=== PATIENT | female | born 1995 ===

== ENCOUNTER 2018-06-28 18:22 | Emergency (ER) | payer MEDICAID ==
[2018-06-28 18:58] VITALS: BMI 30.1
[2018-06-28 19:24] LABS: SQUAMOUS EPITHIAL < 1 /hpf (0-5); URINE BILIRUBIN NEGATIVE (NEGATIVE); URINE CLARITY Clear (Clear); URINE COLOR Straw (YELLOW); URINE GLUCOSE (UA) NORMAL (Normal); URINE LEUKOCYTE ESTERASE NEG Leu/uL (Negative); URINE PROTEIN NEGATIVE (NEGATIVE); URINE UROBILINOGEN NORMAL mg/dL (0.2-1.0)
[2018-06-28 19:32] LABS: URINE BLOOD TRACE (NEGATIVE)
--- NOTE | 2018-06-28 19:49 | OBHP ---
Datetime: 06/28/2018 19:44 IP Adm Impression: , intrauterine IP Admit Plan: Discharge home Admit Comment, IP Provider: @ 35.6 wks GA c/o pressure x 1 day no dysir, urgnec, furqency vb, c tx, lof, +FM OB: P0 TECHNOLOGY ADOPTION MANAGER: denies PMH Denies PSH deies FHX: non ctibotyr MEDS PNV NKDA SHX: negaive x 3 A/P @ 35.6 wks GA not in labor s/p ua s/p nst dc home f/u clinic 1 weke labor pureciatn given Pelvic Type - PN: Adequate Extremities - PN: Normal Abdomen - PN: Normal Back - PN: Normal Breast - PN: Not Done Lungs - PN: Normal Heart - PN: Normal Thyroid - PN: Normal Neurologic - PN: Normal HEENT - PN: Normal General - PN: Normal Presentation-Admit: Vertex FHR - Baseline A Provider: 150 Membranes, Provider: Intact Contraction Comments Provider: irregular Gestation - Est Wks by US: 35.6 EGA AdmitDate IP: 35.6 Vital Signs Provider: Reviewed; Within Normal Limits IP Chief Complaint: Uterine contractions NICHD Variability Prov Fetus A: Moderate 6-25bpm NICHD Accel Fetus A IP Provider: 15X15 NICHD Decel Fetus A IP Provider: None Dilatation, Provider: 0 Effacement, Provider: 0 Station, Provider: -3 Genitourinary Exam: Normal DTRs - PN: Normal
[2018-06-29 00:02] VITALS: BP 115/76; PULSE 88; RESP 18; TEMP 99.5
== END 2018-06-28 19:50 | disposition home or self-care (01) ==
LOC: C.EROB 18:22
DX: O47.03 False labor before 37 completed weeks of gestation, third trimester (principal); Z3A.35 35 weeks gestation of pregnancy

== ENCOUNTER 2018-07-22 00:20 | Inpatient (IN) | payer MEDICAID ==
[2018-07-22 01:28] VITALS: BMI 32.1
--- NOTE | 2018-07-22 01:30 | OBHP ---
Datetime: 07/22/2018 01:19 IP Adm Impression: Term, intrauterine ; Intact Membranes IP Admit Plan: Observation/Evaluation Admit Comment, IP Provider: 22 yo female with an IUP at 39.2 weeks per datew and US at 25 w eeks. Presents with c/o of contractions Q 5 mins since earlier yesterday. Denies LOF or VB and admits to adequate FM PMHx and PSHx Negative NKDA Social HX Negative Meds PNV Late PNC entry A/P Term Early labor Reactive NST Will ambulate for a while and reassess Pelvic Type - PN: Adequate Extremities - PN: Normal Abdomen - PN: Normal Back - PN: Normal Breast - PN: Not Done Lungs - PN: Normal Heart - PN: Normal Thyroid - PN: Normal Neurologic - PN: Normal HEENT - PN: Normal General - PN: Normal Presentation-Admit: Vertex FHR - Baseline A Provider: 120 Membranes, Provider: Intact Contraction Comments Provider: 5-7 Gestation - Est Wks by US: 39.2 IP Hx Assessment: Partial PNC records available and reviewed EGA AdmitDate IP: 39.2 Vital Signs Provider: Reviewed IP Chief Complaint: Uterine contractions NICHD Variability Prov Fetus A: Moderate 6-25bpm NICHD Accel Fetus A IP Provider: 15X15 NICHD Decel Fetus A IP Provider: None Dilatation, Provider: 2 Effacement, Provider: 70 Station, Provider: -3 Genitourinary Exam: Normal DTRs - PN: Normal
[2018-07-22 02:36] LABS: SQUAMOUS EPITHIAL 7 /hpf (0-5); URINE BACTERIA OCC (<OCC); URINE BILIRUBIN NEGATIVE (NEGATIVE); URINE BLOOD 2+ (NEGATIVE); URINE CLARITY Clear (Clear); URINE COLOR Red (YELLOW); URINE GLUCOSE (UA) NORMAL (Normal); URINE LEUKOCYTE ESTERASE 3+ Leu/uL (Negative); URINE PROTEIN NEGATIVE (NEGATIVE); URINE UROBILINOGEN NORMAL mg/dL (0.2-1.0)
[2018-07-22] MEDS: Lactated Ringer's 1,000 ML IV SCH (03:15)
[2018-07-22 03:40] LABS: BASO # 0.1 K/uL (0.0-0.2); BASO % 0.7 % (0.0-2.0); EOS # 0.1 K/uL (0.0-0.7); EOS % 1.3 % (0.0-4.0); LYMPH # 3.1 K/uL (1.0-4.3); LYMPH % 30.1 % (20.0-40.0); MEAN CELL VOLUME 90.4 fL (81.0-99.0); MEAN CORPUSCULAR HEMOGLOBIN 30.3 pg (27.0-31.0); MEAN CORPUSCULAR HGB CONC 33.5 g/dL (33.0-37.0); MEAN PLATELET VOLUME 9.6 fL (7.2-11.7); MONO # 0.8 K/uL (0.0-0.8); MONO % 7.6 % (0.0-10.0); NEUT # 6.3 K/uL (1.8-7.0); NEUT % 60.3 % (50.0-75.0); NRBC % 0.1 % (0.0-2.0); RBC 4.29 Mil/uL (3.80-5.20); RED CELL DISTRIBUTION WIDTH 13.4 % (11.5-14.5); WHITE BLOOD COUNT 10.5 K/uL (4.8-10.8)
[2018-07-22 03:47] LABS: BLOOD UREA NITROGEN 5 mg/dL (7-17); GFR NON-AFRICAN AMERICAN > 60
[2018-07-22] MEDS ORDERED: Bupivacaine HCl/FentaNYL Cit 100 ML EPI ONE ×2 (04:15→11:43)
[2018-07-22] MEDS ORDERED: Oxytocin 30 UNIT 30 UNITS/500 ML BAG IV ONE ×3 (05:33→07:56)
--- NOTE | 2018-07-22 07:26 | OBADHP ---
Datetime: 07/22/2018 03:19 Admit Comment, IP Provider: 22 yo female with an IUP at 39.2 weeks per datew and US at 25 w eeks. Presents with c/o of contractions Q 5 mins since earlier yesterday. Denies LOF or VB and admits to adequate FM PMHx and PSHx Negative NKDA Social HX Negative Meds PNV Late PNC entry A/P Term Early labor Reactive NST Ambulated for about one hour and returned in tears with pain UC's about the same but now 3 cms Will admit for anticipated vaginal delivery Will request an epidural and start Pitocin for augmentation of labor Pt aware of POC and agreed Pelvic Type - PN: Adequate Extremities - PN: Normal Abdomen - PN: Normal Back - PN: Normal Breast - PN: Not Done Lungs - PN: Normal Heart - PN: Normal Thyroid - PN: Normal Neurologic - PN: Normal HEENT - PN: Normal General - PN: Normal Presentation-Admit: Vertex FHR - Baseline A Provider: 140 Membranes, Provider: Intact Contraction Comments Provider: 3-4 Gestation - Est Wks by US: 39.2 Vital Signs Provider: Reviewed IP Chief Complaint: Uterine contractions NICHD Variability Prov Fetus A: Moderate 6-25bpm NICHD Accel Fetus A IP Provider: 10X10 FHR Category Provider Fetus A: Category I Dilatation, Provider: 3 Effacement, Provider: 70-3 Genitourinary Exam: Normal DTRs - PN: Normal EGA AdmitDate IP: 39.2 IP Adm Impression: Term, intrauterine IP Admit Plan: Admit to unit; Initiate labor protocol Datetime: 07/22/2018 01:19 IP Hx Assessment: Partial PNC records available and reviewed NICHD Decel Fetus A IP Provider: None Station, Provider: -3
--- NOTE | 2018-07-22 08:13 | OBPN ---
Datetime: 07/22/2018 08:07 IP Progress Impression: Normal progression of labor IP Informed Consent Obtain: Vaginal Delivery IP Procedures: Sterile Vag Exam IP Progress Plan: Continue present management IP Progress Note Comment: patient endorsed at 7am, seen and examined patient admitted in early labor reports +FM, irregular contractions that are not painful, no bleeding or leakage of fluids EFM/[place] reviewed, stable vitals stable, labs reviewed and are within normal limits continue pitocin for augmentation pain control with epidural Vital Signs Provider: Reviewed; Within Normal Limits FHR Category Provider Fetus A: Category I Datetime: 07/22/2018 03:19 Membranes, Provider: Intact Contraction Comments Provider: 3-4 FHR - Baseline A Provider: 140 Gestation - Est Wks by US: 39.2 Presentation-Admit: Vertex NICHD Accel Fetus A IP Provider: 10X10 NICHD Variability Prov Fetus A: Moderate 6-25bpm Dilatation, Provider: 3 Effacement, Provider: 70-3 Datetime: 07/22/2018 01:19 Station, Provider: -3 NICHD Decel Fetus A IP Provider: None
--- NOTE | 2018-07-22 11:57 | OBPN ---
Datetime: 07/22/2018 11:54 IP Progress Impression: Normal progression of labor IP Informed Consent Obtain: Vaginal Delivery IP Procedures: Sterile Vag Exam IP Progress Plan: Continue present management; Augmentation IP Progress Note Comment: with IUP at 39+2 weeks admitted in early labor patient seen and examined no complaints, reports good pain control, + movements, reports occasional strong contraction s epidural in place SROM 8am light mec pitocin for agumentation continue current management FHR Category Provider Fetus A: Category I
--- NOTE | 2018-07-22 14:08 | OBPN ---
Datetime: 07/22/2018 14:00 IP Progress Impression: Normal progression of labor IP Procedures: Scalp Electrode IP Progress Plan: Continue present management FHR - Baseline A Provider: 140s IP Progress Note Comment: patient seen and examined late and variable decelerations noted, patient resussitated, pitocin stopped loss of contact and irreg FHR, IFM placed patient repositioned cervix reducible posterior, anterior lip head at zero station, patient able to move head with pushing efforts pitocin restarted patient and family member at bedside counseled regarding heart rate changes and del gregoria may need to be performed Vital Signs Provider: Reviewed; Within Normal Limits NICHD Variability Prov Fetus A: Moderate 6-25bpm NICHD Decel Fetus A IP Provider: Late; Variable
[2018-07-22] MEDS ORDERED: ceFAZolin IV 2 gm in Dextrose 2 GM/50 ML BAG IVPB SCH (17:31)
[2018-07-22] MEDS ORDERED: Sodium Citrate/Citric Acid 15 ml Sol ONE (17:31)
[2018-07-22] MEDS ORDERED: Sodium Bicarbonate (8.4%) 50 Meq Syringe ONE (17:41)
[2018-07-22] MEDS ORDERED: Sodium Citrate/Citric Acid 15 ml Sol PO ONE (17:45)
[2018-07-22] MEDS ORDERED: Lidocaine 2% MPF (5 ml) Inj ONE (18:24)
[2018-07-22] MEDS ORDERED: Ketamine 50 mg/ml Inj (10 ml) ONE (19:11)
[2018-07-22] MEDS ORDERED: Propofol 10 mg/ml Inj (20 ML) ONE (19:11)
[2018-07-22] MEDS ORDERED: Midazolam 2 MG/2 ML VIAL ONE (19:11)
[2018-07-22] MEDS ORDERED: Morphine 4 MG/ML VIAL ONE (20:07)
[2018-07-22] MEDS ORDERED: HYDROmorphone 1 mg/ml ISec IVP PRN (20:21)
--- NOTE | 2018-07-22 21:06 | OBDS ---
DELIVERY PERSONNEL Delivery Doctor: Mahsa Hopson D.O. Dry Kiln Operator Helper: Tiffany Bone RN Anesthesiologist: Driller Helper: triston MATERNAL INFORMATION Delivery Anesthesia: Epidural Medications in Delivery: pitocin Placenta Cultured: No Maternal Complications: None RN Comments: live baby girl Provider Comments: primary CS, EBL 1000cc, urine 600cc, IVF 2500cc pre op diagnosis: NRFHT, arrest of descent post op diagnosis: same live female in vertex born at 19:04p meconium stained fluid no nuchal cord noted continue prolphylactic antibiotics for 24 hours LABOR SUMMARY EDC: 07/27/2018 00:00 No. Babies in Womb: 1 Attempted: No Labor Anesthesia: Epidural LABOR INFORMATION Onset of Labor: 07/22/2018 07:00 Oxytocin: Augmentation Group B Beta Strep: Negative Steroids Given: None Reason Steroids Not Administered: Not Applicable MEMBRANES Membranes Rupture Method: Spontaneous Rupture of Membranes: 07/22/2018 07:55 Length of Rupture (hrs): 11.17 Amniotic Fluid Color: Light Meconium Amniotic Fluid Amount: Moderate STAGES OF LABOR Stage 3 hrs: 0 Stage 3 min: 1 Total Time in Labor hrs: 12 Total Time in Labor min: 6 VAGINAL DELIVERY Episiotomy: None Laceration Extension: N/A Laceration Type: None CSECTION DELIVERY Primary Indication: Nonreassuring Status Secondary Indication: Arrest of Descent CSection Urgency: Elective CSection Incidence: Primary Labor: Labor Elective: Nonelective CSection Incision: Lower Uterine Transverse BABY A INFORMATION Infant Delivery Date/Time: 07/22/2018 19:05 Method of Delivery: Born in Route : No : N/A Forceps: N/A Vacuum Extraction: N/A Shoulder Dystocia : No SHOULDER DYSTOCIA BABY A Infant Delivery Date/Time: 07/22/2018 19:05 PRESENTATION/POSITION BABY A Presentation: Cephalic Cephalic Presentation: Vertex Vertex Position: Right Occipital Anterior Breech Presentation: N/A PLACENTA INFORMATION BABY A Placenta Delivery Time : 07/22/2018 19:06 Placenta Method of Delivery: Spontaneous Placenta Status: Delivered SCORES BABY A Heart Rate 1 min: >100 bpm Resp Effort 1 min: Good Cry Reflex Irritability 1 min: Cough or Sneeze or Pulls Away Muscle Tone 1 min: Active Motion Color 1 min: Body [place], Extremities Blue Resuscitation Effort 1 min: Tactile Stimulation SCORE 1 MIN: 9 Heart Rate 5 min: >100 bpm Resp Effort 5 min: Good Cry Reflex Irritability 5 min: Cough or Sneeze or Pulls Away Muscle Tone 5 min: Active Motion Color 5 min: Body [place], Extremities Blue Resuscitation Effort 5 min: Tactile Stimulation SCORE 5 MIN: 9 INFORMATION BABY A Gestational Age at Delivery: 39.2 Gestational Status: Term Infant Outcome : Liveborn Infant Condition : Stable Sex: Female IDENTIFICATION/MEDS BABY A ID Band Number: [id number] ID Band Location: Left Leg; Left Arm Sensor Applied: Yes Sensor Number: [id number] Sensor Location : Cord Clamp Vitamin K Given : Aquamephyton 1 mg IM; Left Thigh Erythromycin Given: Given Both Eyes WEIGHT/LENGTH BABY A Birthweight (gms): 3030 Weight (lb): 6 Weight (oz): 11 Length Inches: 20.00 Infant Length cms: 50.8 CORD INFORMATION BABY A No. Cord Vessels: 3 Nuchal Cord : N/A Cord Blood Taken: Yes Suction: Mouth; Nose ASSESSMENT BABY A Infant Complications: Meconium Physical Findings at Delivery: Caput Succedaneum Physical Findings Other: passed meconium Respirations: Appears Normal Cattle Brander/ALS Called : No Infant Care By: dr pete Transferred To: [facility]
--- NOTE | 2018-07-22 21:07 | OBDS ---
DELIVERY PERSONNEL Delivery Doctor: Mahsa Hopson D.O. Service Writer Advisor: Tiffany Bone RN Anesthesiologist: Forestry Laborer: triston MATERNAL INFORMATION Delivery Anesthesia: Epidural Medications in Delivery: pitocin Placenta Cultured: No Maternal Complications: None RN Comments: live baby girl Provider Comments: primary CS, EBL 1000cc, urine 600cc, IVF 2500cc pre op diagnosis: NRFHT, arrest of descent post op diagnosis: same live female in vertex born at 19:04p meconium stained fluid no nuchal cord noted continue prolphylactic antibiotics for 24 hours LABOR SUMMARY EDC: 07/27/2018 00:00 EDC: 07/27/2018 00:00 No. Babies in Womb: 1 Attempted: No Labor Anesthesia: Epidural LABOR INFORMATION Onset of Labor: 07/22/2018 07:00 Oxytocin: Augmentation Group B Beta Strep: Negative Steroids Given: None Reason Steroids Not Administered: Not Applicable MEMBRANES Membranes Rupture Method: Spontaneous Rupture of Membranes: 07/22/2018 07:55 Length of Rupture (hrs): 11.17 Amniotic Fluid Color: Light Meconium Amniotic Fluid Amount: Moderate STAGES OF LABOR Stage 3 hrs: 0 Stage 3 min: 1 Total Time in Labor hrs: 12 Total Time in Labor min: 6 VAGINAL DELIVERY Episiotomy: None Laceration Extension: N/A Laceration Type: None CSECTION DELIVERY Primary Indication: Nonreassuring Status Secondary Indication: Arrest of Descent CSection Urgency: Elective CSection Incidence: Primary Labor: Labor Elective: Nonelective CSection Incision: Lower Uterine Transverse BABY A INFORMATION Delivery Date/Time: 07/22/2018 19:05 Method of Delivery: Born in Route : No : N/A Forceps: N/A Vacuum Extraction: N/A Shoulder Dystocia : No SHOULDER DYSTOCIA BABY A Infant Delivery Date/Time: 07/22/2018 19:05 PRESENTATION/POSITION BABY A Presentation: Cephalic Cephalic Presentation: Vertex Vertex Position: Right Occipital Anterior Breech Presentation: N/A PLACENTA INFORMATION BABY A Placenta Delivery Time : 07/22/2018 19:06 Placenta Method of Delivery: Spontaneous Placenta Status: Delivered SCORES BABY A Heart Rate 1 min: >100 bpm Resp Effort 1 min: Good Cry Reflex Irritability 1 min: Cough or Sneeze or Pulls Away Muscle Tone 1 min: Active Motion Color 1 min: Body [place], Extremities Blue Resuscitation Effort 1 min: Tactile Stimulation SCORE 1 MIN: 9 Heart Rate 5 min: >100 bpm Resp Effort 5 min: Good Cry Reflex Irritability 5 min: Cough or Sneeze or Pulls Away Muscle Tone 5 min: Active Motion Color 5 min: Body [place], Extremities Blue Resuscitation Effort 5 min: Tactile Stimulation SCORE 5 MIN: 9 INFANT INFORMATION BABY A Gestational Age at Delivery: 39.2 Gestational Status: Term Infant Outcome : Liveborn Condition : Stable Sex: Female IDENTIFICATION/MEDS BABY A ID Band Number: [id number] ID Band Location: Left Leg; Left Arm Sensor Applied: Yes Sensor Number: [id number] Sensor Location : Cord Clamp Vitamin K Given : Aquamephyton 1 mg IM; Left Thigh Erythromycin Given: Given Both Eyes WEIGHT/LENGTH BABY A Infant Birthweight (gms): 3030 Weight (lb): 6 Infant Weight (oz): 11 Infant Length Inches: 20.00 Length cms: 50.8 CORD INFORMATION BABY A No. Cord Vessels: 3 Nuchal Cord : N/A Cord Blood Taken: Yes Suction: Mouth; Nose ASSESSMENT BABY A Infant Complications: Meconium Physical Findings at Delivery: Caput Succedaneum Physical Findings Other: passed meconium Respirations: Appears Normal Press Box Custodian/ALS Called : No Care By: dr pete Transferred To: [facility]
[2018-07-22] MEDS ORDERED: Oxycodone/Acetaminophen 5/325 mg Tab PO PRN (22:43)
[2018-07-23] MEDS ORDERED: ceFAZolin IV 2 gm in Dextrose 2 GM/50 ML BAG IVPB SCH (02:00)
[2018-07-23] MEDS: Oxycodone/Acetaminophen 5/325 mg Tab PO PRN ×2 (02:46→07:50)
[2018-07-23] MEDS: Lactated Ringer's 1,000 ML IV SCH (03:00)
[2018-07-23 07:49] LABS: MEAN CELL VOLUME 90.9 fL (81.0-99.0); MEAN CORPUSCULAR HGB CONC 34.1 g/dL (33.0-37.0); MEAN PLATELET VOLUME 8.7 fL (7.2-11.7); RBC 3.24 Mil/uL (3.80-5.20); RED CELL DISTRIBUTION WIDTH 13.6 % (11.5-14.5); WHITE BLOOD COUNT 13.9 K/uL (4.8-10.8)
[2018-07-23] MEDS: Prenatal Multivit/Folic Acid/Iron Tab PO SCH (09:10)
[2018-07-23] MEDS ORDERED: Lactated Ringer's 1,000 ML IV ONE (09:50)
[2018-07-23] MEDS ORDERED: ceFAZolin IV 2 gm in Dextrose 2 GM/50 ML BAG IVPB ONE (10:00)
[2018-07-23] MEDS ORDERED: Influenza Vaccine 60 MCG/0.5 ML SYR (3 yr & up) IM ONE (10:00)
[2018-07-23] MEDS ORDERED: Oxycodone/Acetaminophen 5/325 mg Tab PO SCH (10:15)
--- NOTE | 2018-07-23 13:29 | OBPPN ---
Datetime: 07/23/2018 13:12 PP Pain Prov: Within normal limits PP Nausea Prov: Denies PP Breasts Prov: Not Done PP Heart Prov: Normal PP Lungs Prov: Normal PP Abdomen/Uterus Prov: Normal PP Lochia Prov: Normal PP Vulva/Perineum Prov: Normal PP CVA Tenderness Prov: Normal PP Extremities Prov: Normal PP Comments Phys Exam Prov: Fundus firm and non-tender Dressing clean dry and Intact PP Impression Prov: Normal progression PP Plan Prov: Continue present management PP Progress Note Prov: POD # 1 S/P Primary C/S for NR FHT's and AOL/ Thick Meconium Temp 101.2 this AM and decresaed to 98.5 after IV Hydration Encouraged to increase po water intake Paredes removed and able to void Post-Op H_H 10.0/29/4 and asymptomatic / Normal WBC C/O of severe pain and Toradol IV and IM ordered and felt much better Pain medication changed to Scheduled Q 6 hrs Motrin and Percocet alternating Encourage activity Diet changed to Regular Advance care IP PP Procedures: None Vital Signs Provider PP: Reviewed; Within Normal Limits
[2018-07-23] MEDS: Oxycodone/Acetaminophen 5/325 mg Tab PO SCH (20:20)
[2018-07-23] MEDS ORDERED: Bisacodyl 5mg EC Tab PO ONE (22:44)
[2018-07-24] MEDS: Oxycodone/Acetaminophen 5/325 mg Tab PO SCH ×3 (02:00→15:25)
[2018-07-24] MEDS ORDERED: Bisacodyl 5mg EC Tab PO ONE ×2 (08:24→10:15)
[2018-07-24] MEDS ORDERED: Oxycodone/Acetaminophen 5/325 mg Tab PO PRN ×2 (08:25→17:36)
[2018-07-24] MEDS: Prenatal Multivit/Folic Acid/Iron Tab PO SCH (10:42)
--- NOTE | 2018-07-24 13:26 | OBPPN ---
Datetime: 07/24/2018 08:32 PP Pain Prov: Within normal limits PP Nausea Prov: Denies PP Flatus Prov: No PP BM Prov: No PP Heart Prov: Normal PP Lungs Prov: Normal PP Lochia Prov: Normal PP Extremities Prov: Normal PP C/S Incision Prov: Normal PP Progress Prov: Normal PP Comments Phys Exam Prov: Abdomen: Soft, fundus is firm and slightly below the umbilicus. Tender t o palpation appropriately, POD # 2. Incision is with steristrips; dry, clean and intact PP Impression Prov: Normal progression PP Plan Prov: Continue present management PP Progress Note Prov: Patient is a 23 year old who is now S/P Primary lower uterine transverse POD # 2. Pt states pain is well controlled today, denies any acute complaints c urrently. Denies passing flatus or BM since C/s. Reports voiding well. Tolerating PO diet well. Breas tfeeding without concerns. Using incentive spirometer as instructed. States she is ambulating around room. Physical Exam: See above VS: See above, WNL Labs: 10.5>13.0/38.8<222, 13.9>10/29.4<181 A+, rubella immune A/P: Patient is a 23 year old female who is now S/P Primary lower uterine transver se POD # 2 due to non-reassuring heart tracing: Drinks very little water and not ambu lating on halls as instructedby myself and by Nursing staff. 1. Stable, Afebrile 2. Pain is well controlled 3. Voiding well, s/p fink removal day 2 4. Monitor for bowel function, encourage ambulation on hallways 5. Increase po water intake 6. Continue to encourage breast feeding 7. Ferrous sulfate 325mg daily; H/H stable 8. Plans for discharge home tomorrow All plans and management discussed with Dr. Casa Luke, DO PGY-1 (Annotations: Data stored by CPN on behalf of user)
[2018-07-24] MEDS ORDERED: Magnesium Citrate Oral SOL (300 ml) PO ONE ×2 (18:45→20:00)
[2018-07-25 09:20] VITALS: BP 95/62; PULSE 80; RESP 18; TEMP 98; O2SAT 99
[2018-07-25] MEDS: Prenatal Multivit/Folic Acid/Iron Tab PO SCH (09:24)
[2018-07-25] MEDS ORDERED: Influenza Vaccine 60 MCG/0.5 ML SYR (3 yr & up) IM ONE (12:30)
--- NOTE | 2018-07-25 19:33 | OBPPN ---
Datetime: 07/25/2018 07:25 PP Pain Prov: Within normal limits PP Nausea Prov: Denies PP Flatus Prov: Yes PP BM Prov: Yes PP Heart Prov: Normal PP Lungs Prov: Normal PP Abdomen/Uterus Prov: Normal PP Lochia Prov: Normal PP Extremities Prov: Normal PP C/S Incision Prov: Normal PP Comments Phys Exam Prov: Abdomen: Soft, + bowel sounds, appropriately tender s/p POD # 3, fundus is firm and slightly below the umbilicus PP Impression Prov: Normal progression PP Plan Prov: Discharge PP Progress Note Prov: Patient is a 23 year old now S/P Primary lower uterine transverse C-s ection POD # 3. Pt states pain is well controlled today, denies any acute complaints currently. Patie nt reports having a bowel movement yesterday and voiding well. Patient is tolerating PO diet well, br eastfeeding without concerns and ambulating without difficulty. Using incentive spirometer as instruc leonardo Physical Exam: See above VS: See above, WNL Labs: 10.5>13.0/38.8<222, 13.9>10/29.4<181 A+, rubella immune A/P: Patient is a 23 year old S/P Primary lower uterine transverse POD # 3 due t o non-reassuring heart tracin. Stable, Afebrile 2. Pain is well controlled 3. Continue to encourage hydration and ambulation 4. Continue to encourage breast feeding 6. Discharge today: Please follow up with [facility] in 1 week for check, inci song check and oral contraceptive prescription, keep incisions clean and dry, continue with hydration and ambulation, nothing per vaginal and no sexual intercourse in 6-8 weeks. Please avoid heavy lifti ng for the next 6-8 weeks. Please take sayda-sequel 1 Tab twice a day. All plans and management discussed with Dr. Abraham Brunson, DO PGY-2 Attending Note: patient seen and evaluated by me with the resident. I agree wtih the above as docu mented. Vital Signs Provider PP: Reviewed
--- NOTE | 2018-07-25 19:33 | OBDCSUM ---
Datetime: 07/25/2018 12:10 Discharged to, Provider: Home Follow up at, Provider: [facility] [place] Disch Instr Activity: Normal activity Disch Instr Diet: Regular Discharge Diet restrict Prov: None Discharge Instructions, Provider: Routine instructions given Discharge Diagnosis, Provider: Term Delivered Discharge Time: 07/25/2018 13:00 Follow up in weeks, Provider: 08/01/2018 Disch Referrals: None Contraception discussed, Prov: Yes Disch Activity Restrictions: No exercising; No lifting; No driving; Minimize walking; Minimize stair -climbing; No sexual activity; Nothing in vagina - [place], tampons, douche Discharge Diagnosis Prov Other: Failed trial of labor Non reassuring heart racing Status post primary section Acute blood loss anemia Contraception counseling Contraception after Delivery: Control Pill/Patch Datetime: 07/25/2018 08:26 Discharged to, Provider: Home Follow up at, Provider: [facility] Disch Instr Activity: Normal activity; May be up to bathroom; May be up for meals; May Shower Disch Instr Diet: Regular Discharge Instructions, Provider: Routine instructions given Discharge Diagnosis, Provider: Term Delivered Follow up in weeks, Provider: 1 week Disch Referrals: None Contraception discussed, Prov: Yes Disch Activity Restrictions: No lifting; No sexual activity; Nothing in vagina - [place], tampon s, douche Discharge Comment, Provider: Please follow up with [facility] in 1 week for chec k, incision check and oral contraceptive prescription Keep incisions clean and dry, continue with hydration and ambulation Nothing per vaginal and no sexual intercourse for 6-8 weeks. Please avoid heavy lifting for the next 6-8 weeks. Please take sayda-sequel 1 Tab twice a day. Please take care Discharge Diagnosis Prov Other: 39.2 weeks delivery by due to non-reassuring heart rate Contraception after Delivery: Control Pill/Patch
--- NOTE | 2018-08-03 20:20 | OP ---
PROCEDURE DATE: 07/22/2018 SURGEON: Mahsa Hopson DO PICK AND SHOVEL MAN: Stiven Dockery MD ANESTHESIOLOGIST: Lisa Sequeira MD ANESTHESIA TYPE: Epidural. PREOPERATIVE DIAGNOSES: Intrauterine at 39 plus two weeks, early labor, arrest of descent, and nonreassuring heart rate tracing. POSTOPERATIVE DIAGNOSES: Intrauterine at 39 plus two weeks, early labor, arrest of descent, and nonreassuring heart rate tracing, meconium stained fluid. PROCEDURE: Primary low transverse section via Pfannenstiel skin incision. INTRAOPERATIVE FLUIDS GIVEN: 2500 mL. ESTIMATED BLOOD LOSS: 1 L. URINE OUTPUT: 600 mL. SPECIMENS REMOVED: Placenta. COMPLICATIONS: No complications. INTRAOPERATIVE FINDINGS: Female born at 19:04 p.m. with Apgars 9 and 9, born in vertex position. DESCRIPTION OF PROCEDURE: The patient was taken to the operating room prior to having an epidural placed during her labor course. She was prepped and draped in normal sterile fashion in dorsal supine position with a leftward tilt. Pfannenstiel skin incision was made with a scalpel and carried down to underlying fascia with a Bovie. The fascia was incised in the midline and the incision was extended laterally. Superior aspect of the fascial incision was grasped with two Sagar clamps and the rectus muscle was dissected off using a Bovie. Attention was turned inferiorly and the muscle was dissected off in a similar fashion. The rectus muscle was bluntly further with gentle traction. Peritoneum was identified and noted to be free of adherent bowel or bladder and entered bluntly, and the peritoneum was further with gentle traction. Bladder blade was placed and the lower uterine segment was incised in a transverse fashion. Incision was extended bluntly with some lateral and upward traction motion. Infant's head was brought to the incision. was delivered without difficulty. Mouth and nose were suctioned. Cord was clamped and cut and the was handed off to awaiting Pediatric Team. Placenta was manually removed and the uterus was exteriorized. Multiple moist laps were used to ensure complete removal of placental membranes. There was meconium stained amniotic fluid that was noted during the delivery and there were some adherent membranes that were just carefully removed with repeat use of clean lap sponges each time. The patient's pain control was not adequate and anesthesia administered further medications at this time. The uterine incision was reapproximated with 0 Monocryl in a running lock fashion. Good hemostasis. On visual inspection, fallopian tubes and ovaries were noted to be healthy and returned to the abdominal cavity. The uterus was return to the abdominal cavity. Moist lap sponge was used to assure her some further removal of blood clots and fluid from the abdominal cavity. Muscle was reapproximated with running suture of 2-0 Monocryl. Fascia was reapproximated with 0 Vicryl in a continued running fashion. Subcutaneous layer was reapproximated with plain suture and the skin was closed with 4-0 Monocryl. All laps, sponge and needle counts were correct x2. The patient tolerated the procedure well and was taken to the recovery in stable condition. Mahsa Hopson DO
== END 2018-07-25 13:00 | disposition home or self-care (01) | DRG 540 ==
LOC: C.EROB 00:20 → C.4D 02:55 → C.4M 22:26
PROVIDERS: ADMIT Obstetrics & Gynecology; ATTEND Obstetrics & Gynecology
PROC: 10D00Z1 Extraction of Products of Conception, Low, Open Approach (ICD-10-PCS; principal; 2018-07-22)
PROC: 4A1H74Z Monitoring of Products of Conception, Cardiac Electrical Activity, Via Natural or Artificial Opening (ICD-10-PCS; 2018-07-22)
DX: O76 Abnormality in fetal heart rate and rhythm complicating labor and delivery (principal); D62 Acute posthemorrhagic anemia; O90.81 Anemia of the puerperium; O77.0 Labor and delivery complicated by meconium in amniotic fluid; Z3A.39 39 weeks gestation of pregnancy; Z37.0 Single live birth; O62.1 Secondary uterine inertia; O66.40 Failed trial of labor, unspecified